=== PATIENT | female | born 1970 | race Two or more races ===

== ENCOUNTER 2017-09-20 10:47 | Emergency (ER) | payer SELFPAY ==
[2017-09-20 10:52] VITALS: BP 160/73; BMI 35.4
--- NOTE | 2017-09-20 11:44 | ED.ABDFE ---
HPI - Time seen Time seen: 11:35 - PCP Primary Care Physician: VU - HPI Comment HPI Comment: WORSE TODAY. - Complaint Chief Complaint Doctors Comments: LT FLANK PAIN WITH URINARY URGENCY TIMES 3 DAYS. Chief Complaint:: PT. C/O LEFT FLANK PAIN THAT BEGAN ON MONDAY. PT. HAS URINARY URGENCY. DENIES DYSURIA. - Nurses notes reviewed Nurses Notes Review: Yes - Source History Provided: Patient, Friend - Mode of arrival Mode of Arrival: Ambulatory - Timing Onset of Chief Complaint: 09/17/17 Came on: Suddenly - Duration Duration: Constant Duration: Days - Severity Severity: Moderate - Quality Quality: Aching, Burning - Context Onset: Suddenly History of: None - Modifying Worsening Factors: Nothing Improving Factors: Nothing - Associated signs and symptoms Associated Signs and Symptoms: Frequency PMH - PMH Past Medical History: Yes Past Medical History: Diabetes, Dyslipidemia, Hypertension Past Surgical History: Yes Surgical History: - Family History History of Family Medical Conditions: No - Social History Does patient currently use any type of tobacco product: No Have you used tobacco products in the last 12 months: No Type of Tobacco Use: None Does any household member use tobacco: No Alcohol Use: None Do you use any recreational Drugs:: No Lives With: Family Lives Where: Home - infectious screening In the last 2 months have you had wt loss of >10#?: NO Have you had fever, night sweats or hemotysis?: No Have you traveled outside the country in the last 6 months?: No Isolation: Standard ROS - Review of Systems Constitutional: No Symptoms Reported Eyes: No Symptoms Reported ENTM: No Symptoms Reported Respiratoy: No Symptoms Reported Cardiovascular: No Symptoms Reported Gastrointestinal/Abdominal: No Symptoms Reported Genitourinary: No Symptoms Reported Neurological: No Symptoms Reported Musculoskeletal: Other (LT FLANK PAIN.) Integumentary: No Symptoms Reported Hematologic/Lymphatic: No Symptoms Reported Endocrine: No Symptoms Reported All Other Systems: Reviewed and Negative PE - Vital Signs Vitals: Temperature 98.8 F Pulse Rate 80 Respiratory Rate 20 Blood Pressure 160/73 O2 Sat by Pulse Oximetry 96 - General Limitations: No Limitations General Appearance: Alert - Head Head Exam: Normal Inspection - Eyes Eye exam: Normal Appearance - ENT ENT Exam: Normal External Ear Exam - Neck Neck Exam: Normal Inspection - Chest Chest Inspection: Symmetric Chest Wall Rise - Respiratory Respiratory Exam: Normal Lung Sounds Bilat Respiratory Exam: Bilateral Clear to Auscultation - Cardiovascular Cardiovascular Exam: Regular Rate, Normal Rhythm, Normal Heart Sounds - Abdominal Exam Abdominal Exam: Normal Inspection, Normal Bowel Sounds, Soft - Rectal Rectal Exam: Deferred - Back Back Exam: (L) CVA Tenderness - Extremeties Extremities Exam: Normal Inspection - External Exam: Female: Deferred : Speculum Exam (Female): Deferred : Bimanual Exam (female): Deferred - Neurologic Neurological Exam: Alert, Oriented X3 - Psychiatric Psychiatric Exam: Normal Affect, Normal Mood - Skin Skin Exam: Normal Color MDM - Additional Information Obtained From Additional information provided by: Family - Differential Diagnosis Differential Diagnosis- Considerations may include:: Cholelethiasis, Pancreatitis, Urinary tract infection, Urolithiasis Course - Treatment Treatment: SEE ORDERS. - Education/Counseling Education/Counseling: Patient, Family, Education Educated On: Diagnosis, Needs for Follow Up ROR - Labs Reviewed Laboratory Results Reviewed?: Yes Result Diagrams: 09/20/17 11:52 09/20/17 11:52 Laboratory: WBC 6.9 X10^3/uL (3.6-10.0) 09/20/17 11:52 RBC 4.41 X10^6/uL (3.5-5.4) 09/20/17 11:52 Hgb 13.3 g/dL (12.0-16.0) 09/20/17 11:52 Hct 38.0 % (36.0-47.0) 09/20/17 11:52 MCV 86.2 fL (80.0-100.0) 09/20/17 11:52 MCH 30.2 pg (27.0-34.0) 09/20/17 11:52 MCHC 35.0 g/dL (33.0-35.0) 09/20/17 11:52 RDW 12.4 % (11.6-16.5) 09/20/17 11:52 Plt Count 262 X10^3/uL (150.0-450.0) 09/20/17 11:52 MPV 9.3 fL (7.4-11.0) 09/20/17 11:52 Neut % (Auto) 52.0 % (42.0-75.0) 09/20/17 11:52 Lymph % (Auto) 36.1 % (21.0-51.0) 09/20/17 11:52 [place] % (Auto) 8.7 % (0.0-13.0) 09/20/17 11:52 Eos % (Auto) 2.3 % (0.9-2.9) 09/20/17 11:52 Baso % (Auto) 0.9 % (0.2-1.0) 09/20/17 11:52 Neut # (Auto) 3.6 x10^3/uL (2.2-4.8) 09/20/17 11:52 Lymph # (Auto) 2.5 X10^3/uL (1.3-2.9) 09/20/17 11:52 [place] # (Auto) 0.6 x10^3/uL (0.3-0.8) 09/20/17 11:52 Eos # (Auto) 0.2 x10^3/uL (0.0-0.2) 09/20/17 11:52 Baso # (Auto) 0.1 X10^3/uL (0.0-0.1) 09/20/17 11:52 Absolute Nucleated RBC 0.0 /100WBC 09/20/17 11:52 Sodium 138 mmol/L (136-145) 09/20/17 11:52 Corrected Sodium 139 mmol/L (136-145) 09/20/17 11:52 Potassium 4.0 mmol/L (3.5-5.1) 09/20/17 11:52 Chloride 102 mmol/L (98-107) 09/20/17 11:52 Carbon Dioxide 26.8 mmol/L (21-32) 09/20/17 11:52 BUN 11 mg/dL (7-18) 09/20/17 11:52 Creatinine 0.92 mg/dL (0.55-1.02) 09/20/17 11:52 Est GFR (MDRD) Af Amer > 60 (>60) 09/20/17 11:52 Est GFR (MDRD) Non-Af > 60 (>60) 09/20/17 11:52 Glucose 160 mg/dL (65-99) H 09/20/17 11:52 Calcium 8.4 mg/dL (8.5-10.1) L 09/20/17 11:52 Corrected Calcium TNP 09/20/17 11:52 Total Bilirubin 0.50 mg/dL (0.2-1.0) 09/20/17 11:52 AST 28 Units/L (15-37) 09/20/17 11:52 ALT 36 Units/L (12-78) 09/20/17 11:52 Alkaline Phosphatase 68 Units/L (46-116) 09/20/17 11:52 Total Protein 8.1 g/dL (6.4-8.2) 09/20/17 11:52 Albumin 3.7 g/dL (3.4-5.0) 09/20/17 11:52 Globulin 4.4 g/dL (2.5-4.5) 09/20/17 11:52 Albumin/Globulin Ratio 0.8 Ratio (1.1-2.1) L 09/20/17 11:52 Specimen Type Clean catch urine 09/20/17 11:34 Urine Color Yellow (YELLOW) 09/20/17 11:34 Urine Appearance Clear (CLEAR) 09/20/17 11:34 Urine pH 6.5 (5.0 - 8.0) 09/20/17 11:34 Ur Specific [place] 1.015 (1.000-1.030) 09/20/17 11:34 Urine Protein 3+ (NEGATIVE) 09/20/17 11:34 Urine Glucose (UA) Negative (NEGATIVE) 09/20/17 11:34 Urine Ketones Negative (NEGATIVE) 09/20/17 11:34 Urine Occult Blood 1+ (NEGATIVE) 09/20/17 11:34 Urine Nitrite Negative (NEGATIVE) 09/20/17 11:34 Urine Bilirubin Negative (NEGATIVE) 09/20/17 11:34 Urine Urobilinogen Normal (NORMAL) 09/20/17 11:34 Ur Leukocyte Esterase Negative (NEGATIVE) 09/20/17 11:34 Urine RBC 3-5 /HPF (NONE SEEN) 09/20/17 11:34 Urine WBC 0-2 /HPF (NONE SEEN) 09/20/17 11:34 Ur Squamous Epith Cells Rare /HPF (NEGATIVE) 09/20/17 11:34 Amorphous Sediment Trace /HPF (NEGATIVE) 09/20/17 11:34 Urine Bacteria Negative /HPF (NEGATIVE) 09/20/17 11:34 Urine Mucus Few /HPF (NEGATIVE) 09/20/17 11:34 Ur Culture Indicated? No/not indicated 09/20/17 11:34 - XRAY XRAY Interpreted by: Radiologist XRAY Findings: REPORT DISCUSS WITH PATIENT. - Diagnosis Discharge Problem: Left flank pain, Musculoskeletal pain - Discharge Plan Disposition: HOME, SELF-CARE Condition: Stable Prescriptions: Cyclobenzaprine HCl [FLEXERIL 10 MG *] 10 mg PO TID PRN #20 tab PRN Reason: Ibuprofen [MOTRIN TAB 800 MG *] 800 mg PO Q8H PRN #30 tab PRN Reason: Pain/Inflammation - Follow ups/Referrals Follow ups/Referrals: [facility],None [Primary Care Provider] - 3 days - Instructions Instructions: Musculoskeletal Pain, Flank Pain, Adult, [id number] Additional Instructions: RETURN TO ED IF WORSE.
[2017-09-20 11:49] LABS: BILIRUBIN,URINE NEGATIVE (NEGATIVE); BLOOD/HEMOGLOBIN,URINE 1+ (NEGATIVE); GLUCOSE, URINE NEGATIVE (NEGATIVE); KETONES,URINE NEGATIVE (NEGATIVE); LEUKOCYTE ESTERASE ,URINE NEGATIVE (NEGATIVE); NITRITES,URINE NEGATIVE (NEGATIVE); PH,URINE 6.5 (5.0 - 8.0); PROTEIN,URINE 3+ (NEGATIVE); UROBILINOGEN,URINE NORMAL (NORMAL)
[2017-09-20 11:57] LABS: APPEARANCE,URINE CLEAR (CLEAR); COLOR,URINE YELLOW (YELLOW)
[2017-09-20 12:00] LABS: AMORPHOUS SEDIMENT,UR TRACE /HPF (NEGATIVE); BACTERIA,URINE NEGATIVE /HPF (NEGATIVE); MUCUS,URINE FEW /HPF (NEGATIVE)
[2017-09-20 12:01] LABS: SQUAMOUS EPITHELIAL CELL,UR RARE /HPF (NEGATIVE)
[2017-09-20 12:17] LABS: BASOPHILS # (AUTO) 0.1 X10^3/uL (0.0-0.1); BASOPHILS % (AUTO) 0.9 % (0.2-1.0); EOSINOPHILS # (AUTO) 0.2 x10^3/uL (0.0-0.2); EOSINOPHILS % (AUTO) 2.3 % (0.9-2.9); HEMOGLOBIN 13.3 g/dL (12.0-16.0); LYMPHOCYTES # (AUTO) 2.5 X10^3/uL (1.3-2.9); LYMPHOCYTES % (AUTO) 36.1 % (21.0-51.0); MEAN CORPUSCULAR HEMOGLOBIN 30.2 pg (27.0-34.0); MEAN CORPUSCULAR VOLUME 86.2 fL (80.0-100.0); MEAN PLATELET VOLUME 9.3 fL (7.4-11.0); MONOCYTES # (AUTO) 0.6 x10^3/uL (0.3-0.8); MONOCYTES % (AUTO) 8.7 % (0.0-13.0); NEUTROPHILS # (AUTO) 3.6 x10^3/uL (2.2-4.8); PLATELET COUNT 262 X10^3/uL (150.0-450.0); RED BLOOD COUNT 4.41 X10^6/uL (3.5-5.4); RED CELL DISTRIBUTION WIDTH 12.4 % (11.6-16.5); WHITE BLOOD COUNT 6.9 X10^3/uL (3.6-10.0)
[2017-09-20 12:21] LABS: ALANINE AMINOTRANSFERASE 36 Units/L (12-78); ALBUMIN 3.7 g/dL (3.4-5.0); ALKALINE PHOSPHATASE 68 Units/L (46-116); ASPARTATE AMINO TRANSFERASE 28 Units/L (15-37); BLOOD UREA NITROGEN 11 mg/dL (7-18); CALCIUM 8.4 mg/dL (8.5-10.1); CARBON DIOXIDE 26.8 mmol/L (21-32); CHLORIDE 102 mmol/L (98-107); COR NA(FOR HYPERGLY) 139 mmol/L (136-145); CREATININE 0.92 mg/dL (0.55-1.02); TOTAL PROTEIN 8.1 g/dL (6.4-8.2); eGFR BLACK RACES > 60 (>60); eGFR NON BLACK RACES > 60 (>60)
[2017-09-20 12:22] LABS: SODIUM 138 mmol/L (136-145)
--- NOTE | 2017-09-20 12:23 | CT ---
HISTORY: Left flank pain and hematuria. Study: CT abdomen and pelvis without contrast Comparison: None. Technique: Multiple axial images of the abdomen and pelvis were obtained from the lung bases to the pubic symphy sis without the administration of IV contrast. Dose reduction techniques including Automated Exposur e Control (AEC) and adjustment of mA and kV were utilized. Findings: Limited study secondary to lack of IV and oral contrast new a. The visualized portions of the lung bases are unremarkable. Hepatomegaly and diffuse fatty infiltrati on of the liver. Focal fatty sparing at the gallbladder fossa. No obvious liver lesions. The spleen, pancreas, kidneys, and adrenal glands are unremarkable in their CT appearance. The gallbladder is unr emarkable in its CT appearance. No significant mesenteric lymphadenopathy or stranding can be observ ed. No free fluid or free air is seen within the abdomen. Limited evaluation of the large and small bowel secondary to collapse and lack of oral contrast. Scattered colonic diverticulum without eviden ce of diverticulitis. Remaining large and small bowel appear normal. The appendix appears normal. Lob ulated appearance of the uterus likely representing fibroids. No obvious adnexal lesions. The urinary bladder is grossly unremarkable. The bony structures are grossly intact. IMPRESSION: No CT evidence of acute abdominal/pelvic pathology. Reported By:
[2017-09-20] MEDS ORDERED: TORADOL 60 MG VIAL IM ONE (12:26)
[2017-09-20] MEDS ORDERED: NORFLEX INJ IM ONE (12:26)
== END 2017-09-20 12:41 | disposition home or self-care (01) ==
LOC: ER 11:23
DX: R10.84 Generalized abdominal pain (principal); M79.1 Myalgia
CPT/HCPCS: 36415; 74176; 80053; 81001; 85025; 99283; 99284